=== PATIENT | female | born 1975 | race African-American/Black ===

== ENCOUNTER 2018-03-07 17:50 | Emergency (ER) | payer MEDICAID ==
[~2018-03-07] VITALS: Ht 170.2 cm; Wt 76.0 kg
[2018-03-07 17:57] VITALS: BP 138/89
== END 2018-03-07 19:50 | disposition left against medical advice (07) ==
LOC: ER 17:50
DX: R10.9 Unspecified abdominal pain (principal); Z53.21 Procedure and treatment not carried out due to patient leaving prior to being seen by health care provider